=== PATIENT | female | born 1965 | race Caucasian/White ===

== ENCOUNTER 2018-10-24 17:58 | Outpatient (REF) | payer OTHER, SELFPAY ==
--- NOTE | 2018-10-24 15:30 | PAPFT_PTH ---
PATIENT: Keshia Isaacs LOC: [facility] U#:[id number] AGE/SX: 53/F ROOM: RE10/24/[address]: MICHELLE Beltran : 1965 BED: DIS: 10/24/2018 SPEC #: [id number] RECD: 10/24/18 18:13 STATUS: SCOTT REQ #: [id number] EDWIGE: 10/24/18 15:[address]: Sandra Green DEPT: [facility] Cytology RECD BY: Chantale Mitchell ENTERED: 10/24/18 18:13 SP TYPE: PAPFT OTHR DR: Grady Yuen Tissues: 1 - CX/ENDOCX FOR PAP SMEARS Procedures: PAP THIN PREP/UVM Screening HPV DNA PROBE Comments: [id number]
== END 2018-10-24 18:18 ==
LOC: LBN 17:58
PROVIDERS: PCP Internal Medicine; Visit Provider Nurse Practitioner Family
DX: Z12.4 Encounter for screening for malignant neoplasm of cervix (principal); Z11.51 Encounter for screening for human papillomavirus (HPV)
CPT/HCPCS: 88142; 87624

== ENCOUNTER 2020-09-27 11:07 | Outpatient (REF) | payer OTHER, SELFPAY ==
--- NOTE | 2020-09-27 10:55 | VUL_PTH ---
PATIENT: Keshia Isaacs LOC: [facility] U#:[id number] AGE/SX: 55/F ROOM: RE09/27/[address]: Danyell Goldberg DO : 1965 BED: DIS: 09/27/2020 SPEC #: [id number] RECD: 09/27/20 17:18 STATUS: SCOTT REQ #: [id number] EDWIGE: 09/27/20 10:[address]: Danyell Goldberg DEPT: Surgical Specimen RECD BY: Chantale Mitchell ENTERED: 09/27/20 17:19 SP TYPE: VUL OTHR DR: Grady Yuen Tissues: 1 - VULVA BIOPSY Procedures: GROSS AND MICRO LEVEL 4 Comments: [id number]
== END 2020-09-27 11:27 ==
LOC: LBN 11:07
PROVIDERS: PCP Internal Medicine; Visit Provider Obstetrics & Gynecology
DX: N90.4 Leukoplakia of vulva (principal)
CPT/HCPCS: 88305

== ENCOUNTER 2020-10-20 01:44 | Outpatient (CLI) | payer OTHER, SELFPAY ==
--- NOTE | 2020-10-20 07:15 | DI.MAMMO_ITS ---
EXAM: MAMMO SCREENING CLINICAL HISTORY: screening,z12.39 TECHNIQUE: Mammograms were interpreted according to the usual protocol including computer analysis w [employer] system, tomosynthesis and C-view imaging. COMPARISON: FINDINGS: The breasts are of moderate density with fairly symmetrical distribution of fibroglandular tissue. N o dominant mass or clumped microcalcification is identified in either breast. Small areas of nodular ity of the right breast appear to have been present on prior examinations and there has been no gross interval change in appearance in comparison with previous examination of August 2015. IMPRESSION: No specific evidence of malignancy at this time. Routine screening examinations are suggested at yea rly intervals in this age group according to the ACS ACR guidelines. BI-RADS Category 1 - Negative Breast Density - Category B - Scattered areas of fibroglandular density
== END 2020-10-20 02:04 ==
PROVIDERS: PCP Internal Medicine; Visit Provider Nurse Practitioner Family
DX: Z12.31 Encounter for screening mammogram for malignant neoplasm of breast (principal)
CPT/HCPCS: 77063; 77067

== ENCOUNTER 2021-04-03 03:42 | Outpatient (CLI) | payer OTHER, SELFPAY ==
[2021-04-03 10:22] LABS: ALT 26 U/L (14-59); AST 17 U/L (15-37); Anion Gap 10.5 mmol/L (3-11); BUN 12 mg/dL (7-18); CO2 26.5 mmol/L (21.0-32.0); CREATININE 0.8 mg/dL (0.55-1.02); Calcium 9.1 mg/dL (8.5-10.1); Calculated LDL 171 mg/dL (<100); Chloride 108 mmol/L (98-107); Cholesterol 256 mg/dL (<200); Glucose 100 mg/dL (74-106); HDL Cholesterol 75 mg/dL (40-60); Potassium 4.5 mmol/L (3.5-5.1); Sodium 145 mmol/L (136-145); Triglyceride 54 mg/dL (<150)
== END 2021-04-03 03:43 | disposition home or self-care (01) ==
PROVIDERS: PCP Internal Medicine; Visit Provider Nurse Practitioner Family
DX: Z13.220 Encounter for screening for lipoid disorders (principal); R32 Unspecified urinary incontinence
CPT/HCPCS: 36415; 80048; 80061; 84450; 84460

== ENCOUNTER 2021-11-22 02:17 | Outpatient (CLI) | payer OTHER, SELFPAY ==
[2021-11-22 21:19] LABS: COVID-19 PCR Negative (Negative)
[2021-11-22 23:19] LABS: Source Nasal/Nares
== END 2021-11-22 02:18 | disposition home or self-care (01) ==
LOC: LBO 02:17
PROVIDERS: PCP Internal Medicine; Visit Provider Surgery
DX: Z20.822 Contact with and (suspected) exposure to COVID-19 (principal)
CPT/HCPCS: 87635

== ENCOUNTER 2021-11-24 10:16 | Day surgery (SDC) | payer OTHER, SELFPAY ==
--- NOTE | 2021-11-23 21:58 | PDOC.DSDIS_ITS ---
Discharge Plan Disposition Patient Disposition: HOME Condition: Good Discharge Details Reason For Visit: Colon scope/colonoscopy Attending Provider: Vale Caicedo Primary Care Provider: Grady Yuen Home Meds and New Rx's Prescriptions: No Action clobetasol [Temovate] 0.05 % cream 1 applic topical BID Qty: 45 1RF estradiol [Vagifem] 10 mcg tablet 10 mcg vaginal DAILY 360 Days Qty: 24 3RF Azo Cranberry 250 mg tablet,chewable 250 mg PO TID 0RF acetaminophen [Mapap Extra Strength] 500 MG tablet 2 tab PO PRN PRN0RF ibuprofen 200 mg tablet 600 mg PO PRN PRN0RF Discharge Instructions Additional Instructions: DSU Colonoscopy Post- Op Instructions Instructions for Everyone who is given Anesthesia: For your safety, please do the following for the next twenty-four (24) hours: *Do Not operate a motor vehicle (car, truck, motorcycle, etc.) *Do Not drink alcoholic beverages or use any recreational drugs for the first 24 hours or while taking pain medications. The medications in your body may have a reaction that can be dangerous. *Do Not make any important decisions or sign any important papers. Findings:X2 polyps Follow up: My office will send a letter in 2-3 weeks time detailing what type of polyps they are and when we want to repeat the colonoscopy. 1. No lifting over 20 pounds or strenuous activity for the first 24 hours after your procedure. After 24 hours there are no restrictions on your activity but you may feel fatigued for a few days. 2. After you arrive home you may have a light meal and return to your normal diet as you can tolerate it without feeling sick to your stomach. 3. You may have a bloated, gaseous feeling in your belly (abdomen) after a colonoscopy. Passing gas and belching will help. Walking or lying down on your left side with your knees flexed may relieve the discomfort. 4. No aspirin/NSAID's for 5 days. Call the office at [phone] (Office) or [phone] (Hospital) right away if you notice any of the following: a.Vomiting of blood or ?coffee ground stools?. b.Rectal bleeding 1Tbsp, blood clots or continuous bleeding. c.Severe belly (abdominal) pain. d.A hard distended belly (abdomen) and an inability to pass gas. 4. Please don?t expect to have a normal BM (bowel movement) for 2-3 days after your procedure. 5. If there are questions regarding the findings of your procedure, please contact your doctor 6. If you are unable to contact your doctor with a problem, contact the hospital at [phone]. 7. Continue all your regular medications unless directed otherwise. I understand the above instructions and have no questions. Signature of Patient or Adult Escort Name of Responsible Adult Escort Signature of Nurse Date/Time Activity:: See above Diet:: See above Discharge Orders Discharge Orders: Discharge Order (Routine); Ordered 11/23/21 Ordered By: Vale Caicedo
--- NOTE | 2021-11-23 21:59 | COLE_ITS ---
Colonoscopy Report Date of procedure: 11/24/21 Pre-op diagnosis general: Colon cancer screening Post-op diagnosis procedure note: other (I/E hemorrhoids /polyps x2) Surgeon: Vale Caicedo Anesthesia Type: General:No Airway Estimated blood loss (mL): 3 Complications: None Disposition: same day Prep: Miralax/Dulcolax Retraction Time: 15 mins Procedure Description: After informed consent was obtained the patient was taken to the procedure room and placed in a left decubitous position. Monitors were applied and a time out was done. The patients name, date of , procedure, allergies to medications and metal in their body was reviewed. The patient was then sedated. Once sedated and comfortable a rectal exam was done. External hemorrhoids- minor. Internal exam revealed a normal sphincter tone and no palpable masses. The scope was then introduced and retrofelexed. Grade II x 2 columns internal hemorrhoids were identified. The scope was then advanced to the cecum w/out difficulty. The TI and appendiceal orifice were identified. The prep was BBPS- 3 in rectal-sigmoid/transverse colon. BBPS2 R colon and cecum. The scope was then slowly retracted over 15 minutes back into the rectum. She had x2 polyps that are removed at 70 cm. One is flat 5 mm polyp that was removed and two bites with a hot forcep. The other is a 0.75 cm flat polyp that appears to be a serrated and is removed with a hot snare. Two endoclips were placed across the defect. No bleeding is noted. The mucosa is otherwise pink and healthy throughout the entirety of the colon. No diverticula are visualized today. The scope is removed and the patient was woken up and taken back to Same day surgery in stable condition. The patient tolerated the procedure well and there were no immediate complications. Follow up: The patient should follow up in 3-5 years, path pd, unless they develop changes in bowel habits or other new gastrointestinal complaints.
[2021-11-24 10:33] VITALS: BP 146/81; PULSE 76; RESP 16; TEMP 36; O2SAT 97
[2021-11-24 10:40] VITALS: BP 146/81; PULSE 76; RESP 16; TEMP 36; O2SAT 97
--- NOTE | 2021-11-24 10:54 | W.ANESPRE ---
General Info Date of Service Date Performed: 11/24/21 Height: 5 ft 5 in Weight: 68.6 kg Body Mass Index (BMI): 25.1 Surgical Procedure: Operation Date: 11/24/21 10:50 Proposed Procedure Side Surgeon justyna Caicedo, Meds Allergies and Home Medications Allergies Allergy/AdvReac Type Severity Reaction Status Date / Time morphine Allergy Itching Unverified 11/22/21 12:39 acetaminophen [From Vicodin] AdvReac Intermediate Nausea Unverified 11/22/21 12:39 hydrocodone bitartrate AdvReac Intermediate Nausea Unverified 11/22/21 12:39 [From Vicodin] Home Medication Medication Instructions Recorded acetaminophen 500 mg tablet (Mapap 2 tab PO PRN PRN 11/22/14 Extra Strength) ibuprofen 200 mg tablet 600 mg PO PRN PRN tab 10/24/18 cranberry fruit concentrate 250 mg 250 mg PO TID 05/29/21 chewable tablet (Azo Cranberry) clobetasol 0.05 % topical cream 1 applic TOPICAL BID #45 g 08/09/21 (Temovate) estradiol 10 mcg vaginal tablet 10 mcg VAGINAL DAILY 360 Days #24 08/09/21 (Vagifem) tab Current Visit Medications: Current Medications Generic Name Dose Route Start Last Admin Trade Name Freq PRN Reason Stop Dose Admin Hyoscyamine Sulfate 0.125 mg 11/23/21 21:57 Hyoscyamine 0.125 Mg Sl/Oral/Chew SL DIRECTED PRN Ringer's Solution 1,000 mls @ 80 mls/hr 11/24/21 06:00 IV 12/23/21 23:59 INFUSION COUNTS INCLUDE 234 BEDS AT THE [facility] IV Miscellaneous Supplies 1 each 11/24/21 06:00 Iv Access IV 12/23/21 23:59 DIRECTED YUNIOR Ondansetron HCl 4 mg 11/23/21 21:57 Ondansetron 4 Mg/2 Ml Vial IVP Q4H PRN PRN Nausea / Vomiting Sodium Chloride 0 ml 11/24/21 06:00 Normal Saline Flush 10 Ml Syr IV 12/23/21 23:59 PRN PRN Sodium Chloride 0 ml 11/24/21 06:00 Normal Saline 10 Ml Vial IJ 12/23/21 23:59 DIRECTED PRN Sterile Water 0 ml 11/24/21 06:00 Water,Injection,Sterile 10 Ml Vial IJ 12/23/21 23:59 DIRECTED PRN PFSH Active Problems Active Problems: Problem Status Onset Code Screening for colon cancer Z12.11 Medical History Medical History Asthma Atrophic vaginitis History of tobacco use Iliotibial band syndrome ITBR Lichen sclerosus et atrophicus HELDER (stress urinary incontinence, female) Urinary incontinence Surgical History Surgical History H/O surgical procedure a. bilateral middle finger and trigger releases b. abductor tendon repair [place] [facility] [place] c. right Neer acromioplasty with distal clavicle excision d. lap tubal Ligation of fallopian tube Tobacco Smoking/Tobacco Use Status: Former Tobacco Use Alcohol Alcohol Intake: current Alcohol intake frequency: 0-2 drinks per day Alcohol type: beer Substance Use Substance use: Never Substance use type: does not use Vital Signs and Lab Results Vital Signs Most Recent Vital Signs in EMR: Most Recent Vital Signs Temp Pulse Resp BP Pulse Ox 36 C L 76 16 146/81 H 97 11/24/21 10:40 11/24/21 10:40 11/24/21 10:40 11/24/21 10:40 11/24/21 10:40 Lab Results Blood Type / Crossmatch: No Data to Display Complete Blood Count: No Data to Display Complete Metabolic Panel: No Data to Display Liver Function Panel: No Data to Display Coagulation Panel: No Data to Display Cardiac Panel: No Data to Display Arterial Blood Gas: No Data to Display Venous Blood Gas: No Data to Display Pancreas Panel: No Data to Display Thyroid Panel: No Data to Display Infectious Disease: Coronavirus (COVID-19)(PCR) Negative (Negative) 11/22/21 08:35 11/22/21 Coronavirus 2019 Source Nasal/Nares 11/22/21 08:35 11/22/21 Blood Cultures: No Data to Display Toxicology Panel: No Data to Display Anesthesia Assessment and Plan Anesthesia History Personal History: No History of Anesthesia Complications Family History: No Family History of Anesthesia Complications Exercise Tolerance Exercise Tolerance: Metabolic Equivalents>4 Pertinent Negatives Pertinent Negatives: No Symptoms of GERD Cardiac & Pulmonary Exam Cardiac Exam: Normal S1/S2 Heart Sounds Pulmonary Exam: Clear Bilateral Breath Sounds Implantable Cardiac Device Does patient have a Pacemaker or an ICD?: No Airway Exam Known Difficult Airway: No Mallampati Class: 2 Mouth Opening: Normal (> 3cm) Thyromental Distance: Greater than 3 cm Neck Range of Motion: Full ROM Neck Circumference: Normal Teeth Condition: Normal Dentition ASA Classification ASA Score: ASA 2 Emergency Case?: No NPO Status NPO Status: NPO Clears >2 hours, Solids >8 hours Anesthesia Plan Resuscitation Status: Full Code Anesthesia Technique: General Anesthesia Airway Planned: Natural Airway Monitors Used: Standard Monitors
[2021-11-24] MEDS: Lactated Ringers 1,000 ML 80 ML IV (10:58)
[2021-11-24 11:29] VITALS: BMI 25.1
--- NOTE | 2021-11-24 11:45 | BOWEL_PTH ---
PATIENT: Keshia Isaacs LOC: [facility] U#:[id number] AGE/SX: 56/F ROOM: RE11/24/[address]: Vale Caicedo : 1965 BED: DIS: 11/24/2021 SPEC #: [id number] RECD: 11/24/21 12:59 STATUS: SCOTT RE #: [id number] EDWIGE: 11/24/21 11:[address]: Vale Caicedo DEPT: Surgical Specimen RECD BY: Chantale Mitchell ENTERED: 11/24/21 12:59 SP TYPE: Bowel OTHR DR: Grady Yuen Tissues: 1 - BIOPSY BOWEL Procedures: GROSS AND MICRO LEVEL 4 Comments: [id number]
[2021-11-24 12:08] VITALS: BP 125/71; PULSE 70; RESP 16; TEMP 36.6; O2SAT 96
[2021-11-24 12:20] VITALS: BP 125/79; PULSE 70; RESP 16; TEMP 36; O2SAT 96
--- NOTE | 2021-11-24 12:21 | W.ANESPOSTOP ---
Postoperative Evaluation Date, Time and Location Date Performed: 11/24/21 Time Performed: 12:21 Patient Location: Day Surgery Unit Vital Signs Most Recent Imported Vital Signs: Most Recent Vital Signs Temp Pulse Resp BP Pulse Ox 36.6 C 70 16 125/71 96 11/24/21 12:08 11/24/21 12:08 11/24/21 12:08 11/24/21 12:08 11/24/21 12:08 Pain Score Most Recent Pain Score: Most Recent Pain Score Pain Level 0 11/24/21 12:08 Assessment Mental Status: Awake (Alert & Oriented to Patient Baseline) Airway and Respiratory Function: Patent airway with normal (patient baseline) respiratory exam Cardiovascular Function: Hemodynamically Stable Hydration Status: Adequately Hydrated Nausea & Vomiting: No Nausea or Vomiting Pain: Pt. Denies Any Pain Peripheral Nerve Block: Patient did not receive a nerve block
[2021-11-24 12:58] VITALS: BP 105/83; PULSE 63; RESP 16; TEMP 36.6; O2SAT 98
== END 2021-11-24 13:08 | disposition home or self-care (01) ==
LOC: SUR 10:17
PROVIDERS: PCP Internal Medicine; Visit Provider Surgery
PROC: 0DJD8ZZ Inspection of Lower Intestinal Tract, Via Natural or Artificial Opening Endoscopic (ICD-10-PCS; CPT 45378; principal; 2021-11-24 10:45)
DX: Z12.11 Encounter for screening for malignant neoplasm of colon (principal); D12.4 Benign neoplasm of descending colon; K64.8 Other hemorrhoids; K64.4 Residual hemorrhoidal skin tags
CPT/HCPCS: 45385; 45384; 88305; J2704

== ENCOUNTER 2022-05-14 19:00 | Emergency (ER) | payer OTHER, SELFPAY ==
[2022-05-14 19:06] VITALS: BP 136/80; PULSE 68; RESP 16; TEMP 36.2; O2SAT 96
--- NOTE | 2022-05-14 20:17 | ED.GENADUL_ITS ---
Discharge Plan Disposition Patient Disposition: HOME Condition: Stable Discharge Details Clinical Impression: Laceration of right thumb Primary Care Provider: Lyla Echavarria ED Provider: Brissa Galvan Home Meds and New Rx's Prescriptions: New cephalexin 500 mg tablet 500 mg PO BID 5 Days Qty: 10 0RF No Action estradiol [Vagifem] 10 mcg tablet 10 mcg vaginal DAILY 360 Days Qty: 24 3RF ibuprofen 200 mg tablet 600 mg PO PRN PRN Discharge Instructions Instructions: Laceration (ED), Skin Adhesive Care (ED) Additional Instructions: Please wear the finger splint to prevent reopening of the laceration for the first few days. Keep clean and dry after 12 to 24 hours you may wash in a running soap and water. The Steri-Strips and glue should start to slough off on their own. If you have any signs of infection including increased redness, swelling, drainage or increased pain please begin the antibiotics prescribed to you. You may also return turn to have it reevaluated if needed. Follow up with primary care provider in 3-5 days. Return to ED sooner if any worsening or concerns. Increase oral fluids. Please take Tylenol or Ibuprofen with food every 4-6 hours as needed for pain and swelling. Referrals: Lyla Echavarria [Primary Care Provider] - 5 days Discharge Data Discharge Date/Time-TO BE ENTERED AT DEPARTURE: 05/14/22 20:55 HPI General Mode of arrival: ambulatory . Date/Time Provider Initiated Documentation: 05/14/22 19:01 . Limitations to Documentation: no limitations . Information obtained by: patient, RN notes reviewed and old records reviewed . HPI Narrative: 57-year-old female presents to the ER with a right thumb laceration which occurred approximately 2 hours prior to arrival. She reports she was opening a can of corn and the lid slipped lacerating the dorsum of her right thumb. She d oes have full range of motion noted. Distal CMS is intact. She has approximately 1 and half centimeter laceration noted. Bleeding is controlled upon arrival. Last tetanus vaccination was within the last 5 years. She is not on any thinners or aspirin daily. Related Data Home Medications Medication Instructions Recorded Confirmed ibuprofen 200 mg tablet 600 mg PO PRN PRN 10/24/18 05/14/22 estradiol 10 mcg vaginal tablet 10 mcg vaginal DAILY 12 months #24 11/03/21 08/08/22 (Vagifem) tabs cephalexin 500 mg tablet 500 mg PO BID 5 days #10 tabs 05/14/22 Previous Rx's Medication Instructions Recorded estradiol 10 mcg vaginal tablet 10 mcg vaginal DAILY 12 months #24 08/09/21 (Vagifem) tabs cephalexin 500 mg tablet 500 mg PO BID 5 days #10 tabs 05/14/22 Allergies Allergy/AdvReac Type Severity Reaction Status Date / Time morphine Allergy Itching Unverified 05/14/22 19:11 acetaminophen [From Vicodin] AdvReac Intermediate Nausea Unverified 05/14/22 19:11 hydrocodone bitartrate AdvReac Intermediate Nausea Unverified 05/14/22 19:11 [From Vicodin] General Stated Complaint: Laceration AVTAR: 4 Review of Systems Integumentary/Breasts Skin/Breast: Reports as per HPI and Reports wounds (Laceration to thumb) PFSH All Active Problems (Updated 05/14/22 @ 20:22 by Brissa Galvan NP) Laceration of right thumb (Acute) Tubular adenoma (Acute) Screening for colon cancer (Acute) Medical History (Updated 05/14/22 @ 20:22 by Brissa Galvan NP) Asthma Atrophic vaginitis History of tobacco use Iliotibial band syndrome ITBR Lichen sclerosus et atrophicus HELDER (stress urinary incontinence, female) Urinary incontinence Surgical History (Updated 12/06/21 @ 13:34 by Brittney Wing RN) H/O surgical procedure a. bilateral middle finger and trigger releases b. abductor tendon repair at [facility] [place] on the left c. right Neer acromioplasty with distal clavicle excision d. lap tubal History of colonoscopy with polypectomy (~11/24/21) Ligation of fallopian tube Family History Sister Diabetes Brother Diabetes Brother Diabetes Mother Rheumatoid arthritis Social History (Updated 11/10/21 @ 09:29 by HUMPHREY Limon) Smoking/Tobacco Use Status: Former Tobacco Use Quit Date: 10/07/03 Smoking risk assessment performed?: Yes Alcohol Intake: current Alcohol Intake frequency: 0-2 drinks per day Alcohol t ype: beer Drug use: Never Substance use type: does not use Do you feel safe at home: Yes Do you feel safe in your relationship?: Yes Exam Extrem Right upper extremity: hand Details: laceration thumb dorsal aspect distal Details: irregular and flap; not actively bleeding and no pulsatile bleeding Hand/finger images: 1. Approximately 1.5 cm laceration noted bleeding controlled. Wound is well approximated. Dermabond tissue adhesive applied wound care performed 2 Steri- Strips in a splint. Course Vital Signs Vital signs: Vital Signs Temperature 36.2 C L 05/14/22 19:06 Pulse 68 05/14/22 19:06 Respiratory Rate 16 05/14/22 19:06 Blood Pressure 136/80 05/14/22 19:06 Pulse Oximetry 96 05/14/22 19:06 Temperature 36.2 C L 05/14/22 19:06 Temperature Source Oral 05/14/22 19:06 Pulse 68 05/14/22 19:06 Respiratory Rate 16 05/14/22 19:06 Respiratory Effort Non-Labored 05/14/22 19:09 Blood Pressure 136/80 05/14/22 19:06 Blood Pressure Position Sitting 05/14/22 19:06 Pulse Oximetry 96 05/14/22 19:06 Oxygen Delivery Method Room Air 05/14/22 19:06 Oxygen Flow Rate 0 05/14/22 19:06 Pain Level 5 05/14/22 19:06 Procedures Laceration Laceration 1: Description: flap and irregular Depth: simple, single layer Pre-repair: wound explored, irrigated extensively and deep structures intact Skin layer closed with: other (To do a cyst and 2 Steri-Strips.)
== END 2022-05-14 20:55 | disposition home or self-care (01) ==
PROVIDERS: Emergency Provider Registered Nurse Emergency; PCP Nurse Practitioner Family
DX: S61.011A Laceration without foreign body of right thumb without damage to nail, initial encounter (principal); Z87.891 Personal history of nicotine dependence; W26.8XXA Contact with other sharp object(s), not elsewhere classified, initial encounter
CPT/HCPCS: 99281; 99282

== ENCOUNTER 2022-07-16 08:54 | Outpatient (REF) | payer OTHER, SELFPAY ==
[2022-07-16 09:07] LABS: Source Nasal/Nares
[2022-07-16 09:42] LABS: COVID-19 PCR Negative (Negative)
== END 2022-07-16 08:55 | disposition home or self-care (01) ==
LOC: LBN 08:54
PROVIDERS: PCP Nurse Practitioner Family; Visit Provider Nurse Practitioner Family
DX: Z20.822 Contact with and (suspected) exposure to COVID-19 (principal)
CPT/HCPCS: 87635

== ENCOUNTER 2022-11-08 13:09 | Emergency (ER) | payer OTHER, SELFPAY ==
[2022-11-08 13:11] VITALS: BP 118/77; PULSE 72; RESP 18; TEMP 36.6; O2SAT 96
--- NOTE | 2022-11-08 13:41 | W.ED.GENAD ---
Discharge Plan Disposition Patient Disposition: Home Condition: Stable Discharge Details Clinical Impression: Avulsion of skin of left thumb Primary Care Provider: Lyla Echavarria ED Provider: Ben Leahy Home Meds and New Rx's Prescriptions: Continued triamcinolone acetonide 0.5 % cream 1 applic topical BID Qty: 15 1RF estradiol [Vagifem] 10 mcg tablet 10 mcg vaginal .twice weekly 360 Days Qty: 24 3RF ibuprofen 200 mg tablet 600 mg PO PRN PRN Discharge Instructions Instructions: Skin Avulsion (ED) Additional Instructions: Keep dressing intact for the next 3 days. Change dressing daily thereafter and monitor for signs of infection including increased warmth, redness, swelling or pain. Return to the emergency department immediately for any worsening or new concerning symptoms. Medical Decision Making 57-year-old female here with skin avulsion of her distal left thumb. Bleeding has stopped but I am concerned that it may open up and continue bleeding. Skin adhesive was applied to achieve hemostasis. Sterile dressing applied. On review of past medical history, tetanus status is not up-to-date. I have ordered tetanus booster to be given today. Usual customary discharge instructions were reviewed with the patient. HPI General Mode of arrival: ambulatory. Date/Time Provider Initiated Documentation: 11/08/22 13:26. Limitations to Documentation: no limitations. Information obtained by: patient. HPI Narrative: 57yo female with injury to left thumb patient notes she pinched her finger while attempting to adjust racks. This occurred about an hour ago. Wound was initially bleeding and bleeding recently stopped. Injury is an avulsion of the skin. Related Data Home Medications Medication Instructions Recorded Confirmed ibuprofen 200 mg tablet 600 mg PO PRN PRN 10/24/18 11/08/22 triamcinolone acetonide 0.5 % 1 applic topical BID #15 grams 06/12/22 11/08/22 topical cream estradiol 10 mcg vaginal tablet 10 mcg vaginal .twice weekly 12 11/01/22 11/08/22 (Vagifem) months #24 tabs Previous Rx's Medication Instructions Recorded triamcinolone acetonide 0.5 % 1 applic topical BID #15 grams 06/12/22 topical cream estradiol 10 mcg vaginal tablet 10 mcg vaginal .twice weekly 12 11/01/22 (Vagifem) months #24 tabs Allergies Allergy/AdvReac Type Severity Reaction Status Date / Time morphine Allergy Itching Unverified 11/08/22 13:14 acetaminophen [From Vicodin] AdvReac Intermediate Nausea Unverified 11/08/22 13:14 hydrocodone bitartrate AdvReac Intermediate Nausea Unverified 11/08/22 13:14 [From Vicodin] General Stated Complaint: Laceration AVTAR: 4 Review of Systems Integumentary/Breasts Skin/Breast: Reports as per HPI PFSH All Active Problems Avulsion of skin of left thumb (Acute) Tubular adenoma (Acute) Screening for colon cancer (Acute) Medical History Asthma Atrophic vaginitis History of tobacco use Iliotibial band syndrome ITBR Lichen sclerosus et atrophicus HELDER (stress urinary incontinence, female) Urinary incontinence Surgical History H/O surgical procedure a. bilateral middle finger and trigger releases b. [place] [facility] [place] c. right Neer acromioplasty with distal clavicle excision d. lap tubal History of colonoscopy with polypectomy (~11/24/21) Ligation of fallopian tube Family History Sister Diabetes Brother Diabetes Brother Diabetes Mother Rheumatoid arthritis Social History Smoking/Tobacco Use Status: Former Tobacco Use Quit Date: 10/07/03 Smoking risk assessment performed?: Yes Alcohol Intake: current Alcohol Intake frequency: 0-2 drinks per day Alcohol type: beer Drug use: Never Substance use type: does not use Do you feel safe at home: Yes Do you feel safe in your relationship?: Yes Exam Skin Trauma: other (1cm avulsion distal thumb palmar surface, no active bleeding) Course Vital Signs Vital signs: Vital Signs Temperature 36.6 C 11/08/22 13:11 Pulse 72 11/08/22 13:11 Respiratory Rate 18 11/08/22 13:11 Blood Pressure 118/77 11/08/22 13:11 Pulse Oximetry 96 11/08/22 13:11 Temperature 36.6 C 11/08/22 13:11 Temperature Source Temporal Artery Scan 11/08/22 13:11 Pulse 72 11/08/22 13:11 Respiratory Rate 18 11/08/22 13:11 Respiratory Effort Non-Labored 11/08/22 13:15 Blood Pressure 118/77 11/08/22 13:11 Blood Pressure Position Sitting 11/08/22 13:11 Pulse Oximetry 96 11/08/22 13:11 Oxygen Delivery Method Room Air 11/08/22 13:11 Oxygen Flow Rate 0 11/08/22 13:11 Pain Level 1 11/08/22 13:16 Procedures Laceration Laceration 1: Site: upper extremity Side (If applicable): left Size (cm): 1 Description: other (avulsion) Depth: simple, single layer Skin layer closed with: other (skin adhesive) PAWSS Have you Been Recently Intoxicated or Drunk Within the Last 30 days?: No Have you Ever Experienced Previous Episodes of Alcohol Withdrawal?: No Have you ever Experienced Withdrawal Seizures?: No Have you ever Experienced Delirium Tremens(DT)s?: No Have you ever undergone Alcohol Rehabilitation Treatment (i.e, inpt ot outpatient treatment programs)?: No Have you ever Experienced Blackouts?: No Have you ever Combined Alcohol with other Downers within the last 90 days?: No Have you ever Combined Alcohol with any other Substance of Abuse during the last 90 days?: No Positive Blood Alcohol level on Presentation? [PCS.BAL]: No Evidence of Increased Autonomic Activity (i.e. HR>120, tremor, sweating, agitation, nausea)?: No Result: 0
== END 2022-11-08 14:31 | disposition home or self-care (01) ==
PROVIDERS: Emergency Provider Student in an Organized Health Care Education/Training Program; PCP Nurse Practitioner Family
DX: S61.012A Laceration without foreign body of left thumb without damage to nail, initial encounter (principal); W26.8XXA Contact with other sharp object(s), not elsewhere classified, initial encounter
CPT/HCPCS: 12001; 90471

== ENCOUNTER → 2023-08-20 00:03 | Outpatient (CLI) | payer OTHER, SELFPAY ==
--- NOTE | 2023-08-20 07:50 | DI.MAMMO_ITS ---
Exam(s) MAMMO SCREENING EXAM: MAMMO SCREENING CLINICAL HISTORY: Z12.31 screening TECHNIQUE: Mammograms were interpreted according to the usual protocol including computer analysis w [employer] CAD system, tomosynthesis and C-view imaging. COMPARISON: 2014 through 2020 FINDINGS: The breasts are composed of scattered fibroglandular densities, Breast Density category B. No suspicious masses or suspicious microcalcifications are seen. No skin thickening or abnormal axillary lymph nodes are seen. There has been no significant change from prior exams. IMPRESSION: BI-RADS Category 1, Negative mammogram Yearly screening mammography is recommended. Breast Density - Category B, scattered fibroglandular densities. A negative radiographic report should not delay biopsy if a dominant or clinically suspicious mass is present. Up to ten percent of cancers are not identified on mammography. A negative report may reinforce clinical impression. Adenosis and dense breasts may obscure an underlying neoplasm. False positive reports average 6 to 10%. Patient will receive a letter notifying them of these results.
== END ==
PROVIDERS: PCP Nurse Practitioner Family; Visit Provider Family Medicine
DX: Z12.31 Encounter for screening mammogram for malignant neoplasm of breast (principal)
CPT/HCPCS: 77063; 77067

== ENCOUNTER 2024-01-07 15:29 | Outpatient (REF) | payer OTHER, SELFPAY | END 2024-01-07 15:30 | disposition home or self-care (01) | LOC: LBN 15:29 | PROVIDERS: PCP Nurse Practitioner Family; Visit Provider Physician Assistant | DX: J02.9 Acute pharyngitis, unspecified (principal) | CPT/HCPCS: 87070 ==

== ENCOUNTER 2024-03-25 17:09 | Outpatient (REF) | payer OTHER, SELFPAY ==
--- NOTE | 2024-03-25 15:45 | SKI_PTH ---
PATIENT: Keshia Isaacs LOC: [facility]#:[id number] AGE/SX: 58/F ROOM: RE03/25/[address]: Tano Cho : 1965 BED: DIS: 03/25/2024 SPEC #: [id number] RECD: 03/26/24 12:52 STATUS: SCOTT REQ #: [id number] EDWIGE: 03/25/24 15:[address]: Tano Cho DEPT: Surgical Specimen RECD BY: Chantale Mitchell ENTERED: 03/26/24 12:53 SP TYPE: SKI OTHR DR: Kelly Rosado Tissues: 1 - SKIN BIOPSY(SHAVE/PUNCH) Procedures: SKIN LEVEL 4 Comments: [id number]
== END 2024-03-25 17:10 | disposition home or self-care (01) ==
LOC: NCHCN 17:09
PROVIDERS: PCP Family Medicine; Visit Provider Family Medicine
DX: L30.8 Other specified dermatitis (principal)
CPT/HCPCS: 88305

== ENCOUNTER 2024-04-01 13:37 | Outpatient (REF) | payer OTHER, SELFPAY ==
[2024-04-01 21:13] LABS: Abs Immature Grans 0.03 10^3/uL (0.0-0.06); Absolute Basophil Count 0.02 10^3/uL (0.0-0.2); Absolute Lymphocyte Count 0.59 10^3/uL (1.2-3.4); Absolute Monocyte Count 0.08 10^3/uL (0.1-0.8); Absolute Neutrophil Count 5.62 10^3/uL (1.2-6.7); Basophils % 0.3 %; HCT 40.8 % (36.0-46.0); HGB 13.2 g/dL (11.2-15.7); Immature Grans % 0.5 %; Lymphocytes % 9.3 %; MCH 29.3 pg (27.0-33.0); MCHC 32.4 % (32.0-36.0); MCV 91 fL (80-95); MPV 9.5 fL (8.0-11.0); Monocytes % 1.3 %; Neutrophils % 88.6 %; Platelet Count 297 10^3/uL (130-400); RDW 13.1 % (11.7-14.6); RDW-SD 42.5 fL; WBC 6.34 10^3/uL (4.4-10.8)
[2024-04-01 21:45] LABS: ALT 31 U/L (14-59); AST 13 U/L (15-37); Albumin 3.7 g/dL (3.4-5.0); Alkaline Phosphatase 93 U/L (46-116); Anion Gap 10.3 mmol/L (3-11); BUN 13 mg/dL (7-18); Bilirubin, Total 0.34 mg/dL (0.2-1.0); CO2 24.7 mmol/L (21.0-32.0); CREATININE 0.9 mg/dL (0.55-1.02); Calcium 8.9 mg/dL (8.5-10.1); Chloride 108 mmol/L (98-107); Estimated GFR 73.19 (mL/min/1.73m2); Glucose 146 mg/dL (74-106); Potassium 4.2 mmol/L (3.5-5.1); Sodium 143 mmol/L (136-145); Total Protein 6.7 g/dL (6.4-8.2)
[2024-04-03 12:26] LABS: IgA 213 mg/dL (85-499); Interpretation (See Note); Tissue Transglutaminase IgA <4.0 CU (<20.0)
== END 2024-04-01 13:38 | disposition home or self-care (01) ==
LOC: NCHCN 13:37
PROVIDERS: PCP Family Medicine; Visit Provider Family Medicine
DX: L30.8 Other specified dermatitis (principal)
CPT/HCPCS: 80053; 82784; 83516; 85025

== ENCOUNTER 2024-07-17 10:37 | Outpatient (CLI) | payer OTHER, SELFPAY ==
--- NOTE | 2024-07-17 10:32 | DI.RAD_ITS ---
Exam(s) XR CHEST 2V PA LATERAL EXAM: XR CHEST 2V PA LATERAL CLINICAL HISTORY: Cough, R05.9, evaluate pathology. TECHNIQUE: 2D digital imaging was performed. COMPARISON: No exams were available for comparison FINDINGS: 2 views: Heart size is normal. The mediastinum is not widened. Lungs are clear. No infiltrates nor pleural effusions. IMPRESSION: No acute pulmonary findings. DATA REPOSITORY: RADIATION DOSE DELIVERED:
== END 2024-07-17 10:57 ==
LOC: DI 10:38
PROVIDERS: PCP Family Medicine; Visit Provider Nurse Practitioner Family
DX: R05.9 Cough, unspecified (principal)
CPT/HCPCS: 71046

== ENCOUNTER 2024-08-12 02:07 | Outpatient (CLI) | payer OTHER, SELFPAY ==
--- NOTE | 2024-08-12 07:45 | DI.MRI_ITS ---
Exam(s) MR BRAIN WO/W EXAM: MR BRAIN WO/W CLINICAL HISTORY: new positional headaches,r51.9,R51.0. TECHNIQUE: Multiplanar multisequence MRI of the brain was performed. CONTRAST MATERIAL: IV Contrast: 15 ML of Dotarem contrast administered. COMPARISON: MR MR ANGIO BRAIN WO from 08/12/2024 FINDINGS: VENTRICLES AND EXTRA AXIAL SPACES: Normal in size and morphology for the patient's age. HEMORRHAGE: None. CEREBRAL PARENCHYMA: No focus of restricted diffusion to suggest acute infarct. No space-occupying le carolin identified. Multiple high signal lesions in the white matter, greater in the bilateral fronta l lobes. BRAINSTEM/CEREBELLUM: Normal. CALVARIUM: Normal. ENHANCEMENT: No suspicious enhancement identified. VISUALIZED PARANASAL SINUSES/MASTOIDS: Clear. Orbits: Unremarkable. Pituitary: Not enlarged. Vasculature: Normal flow voids. IMPRESSION: No evidence of hemorrhage or mass. Scattered foci of high signal in the white matter, nonspecific may represent sequela of microvascular disease. DATA REPOSITORY:
--- NOTE | 2024-08-12 07:45 | DI.MRI_ITS ---
Exam(s) MR ANGIO BRAIN WO CLINICAL HISTORY: headache w/ valsalva,? aneurysm,r51.9. TECHNIQUE: 3D [id number]-tn-[id number] study was performed without contrast. COMPARISON: None. FINDINGS: Carotid Arteries: Petrous: Normal. Cavernous: Normal. Cerebral: Normal. Middle Cerebral Arteries: Right: No aneurysm or significant stenosis. Left: No aneurysm or significant stenosis. Anterior Cerebral Arteries: Right: No aneurysm or significant stenosis. Left: No aneurysm or significant stenosis. Posterior cerebral arteries: Right: No aneurysm or significant stenosis Left: No aneurysm or significant stenosis Vertebral Arteries: Right: No aneurysm or significant stenosis. No dissection. Left: No aneurysm or significant stenosis. No dissection.. Basilar Artery: No aneurysm or significant stenosis. Small Vessels: No evidence of beading. IMPRESSION: Normal MRA examination of the [place]. DATA REPOSITORY:
[2024-08-12] MEDS: Gadoterate meglumine 20 ML VIAL 15 ML IVP (13:37)
== END 2024-08-12 02:27 ==
PROVIDERS: PCP Family Medicine; Visit Provider Nurse Practitioner Adult Health
DX: R51.0 Headache with orthostatic component, not elsewhere classified; R90.89 Other abnormal findings on diagnostic imaging of central nervous system
CPT/HCPCS: 70544; 70553

== ENCOUNTER 2025-07-13 15:02 | Outpatient (CLI) | payer OTHER, SELFPAY ==
[2025-07-13 15:19] LABS: Hemoglobin A1C 5.5 % (<5.7)
[2025-07-13 16:15] LABS: ALT 34 U/L (14-59); AST 17 U/L (15-37); Albumin 3.7 g/dL (3.4-5.0); Alkaline Phosphatase 90 U/L (46-116); Anion Gap 10.7 mmol/L (3-11); BUN 11 mg/dL (7-18); Bilirubin, Total 0.4 mg/dL (0.2-1.0); CO2 24.3 mmol/L (21.0-32.0); Calcium 8.8 mg/dL (8.5-10.1); Calculated LDL 148 mg/dL (<100); Chloride 106 mmol/L (98-107); Cholesterol 241 mg/dL (<200); Estimated GFR 83.26 (mL/min/1.73m2); Glucose 120 mg/dL (74-106); HDL Cholesterol 72 mg/dL (>or=50); Potassium 3.8 mmol/L (3.5-5.1); Sodium 141 mmol/L (136-145); TSH (W/Ref FT4) 2.14 uIU/mL (0.36-3.74); Total Protein 7.0 g/dL (6.4-8.2); Triglyceride 107 mg/dL (<150)
[2025-07-14 10:34] LABS: Hepatitis C Ab w Rflx HCV PCR Negative (Negative)
[2025-07-14 10:35] LABS: HBs Antibody, Quant 6.3 mIU/mL (See Note); Hepatitis B Surface Antigen Negative (Negative)
[2025-07-14 10:38] LABS: HIV-1/2 Ag & Ab Screen Negative (Negative)
== END 2025-07-13 15:03 | disposition home or self-care (01) ==
LOC: LBO 15:03
PROVIDERS: PCP Nurse Practitioner Family; Visit Provider Nurse Practitioner Family
DX: E78.5 Hyperlipidemia, unspecified (principal); Z11.59 Encounter for screening for other viral diseases; Z11.4 Encounter for screening for human immunodeficiency virus [HIV]
CPT/HCPCS: 36415; 80053; 80061; 86704; 86706; 86803; 87340; 87389; 83036; 84443

== ENCOUNTER → 2025-08-23 01:29 | Outpatient (CLI) | payer OTHER, SELFPAY ==
--- NOTE | 2025-08-23 07:45 | DI.MAMMO_ITS ---
Exam(s) MAMMO SCREENING EXAM: MAMMO SCREENING CLINICAL HISTORY: screening,z12.39 TECHNIQUE: Mammograms were interpreted according to the usual protocol including computer analysis with CAD system, tomosynthesis and C-view imaging. COMPARISON: 2015 through 2022 FINDINGS: The breasts are composed of scattered fibroglandular densities, Breast Density category B. No suspicious masses or suspicious microcalcifications are seen. No skin thickening or abnormal axillary lymph nodes are seen. There has been no significant change from prior exams. IMPRESSION: BI-RADS Category 1, Negative mammogram Yearly screening mammography is recommended. Breast Density - Category B - There are scattered areas of fibroglandular density. Breast density Category C or D implies that the patient has dense breast tissue. Dense breast tissue can make it harder to find cancer on a mammogram. Dense breast tissue is also associated with an increased risk of breast cancer. This information about the result of the mammogram report was provided to the patient to raise their awareness. Use this report when you speak with the patient about their risks for breast cancer, which includes their family history. At that time, you may recommend additional screening tests (Ultrasound or MRI) as these tests may add significant information. A negative radiographic report should not delay biopsy if a dominant or clinically suspicious mass is present. Up to ten percent of cancers are not identified on mammography. A negative report may reinforce clinical impression. Adenosis and dense breasts may obscure an underlying neoplasm. False positive reports average 6 to 10%. Patient will receive a letter notifying them of these results.
== END ==
LOC: DI 01:29
PROVIDERS: PCP Nurse Practitioner Family; Visit Provider Nurse Practitioner Family
DX: Z12.31 Encounter for screening mammogram for malignant neoplasm of breast (principal); R92.323 Mammographic fibroglandular density, bilateral breasts
CPT/HCPCS: 77063; 77067